=== PATIENT | male | born 1995 | race Caucasian/White ===

== ENCOUNTER 2017-08-26 21:36 | Emergency (ER) | payer OTHER ==
[2017-08-26 22:16] VITALS: BP 157/67
[2017-08-26] MEDS ORDERED: Acetaminophen/HYDROcodone 325-5 MG Tab PO ONE (22:43)
[2017-08-26] MEDS ORDERED: Albuterol/Ipratropium 3.0-0.5 MG/3 ML Neb Soln INH ONE (22:43)
--- NOTE | 2017-08-28 10:30 | ER ---
DATE SEEN: 08/26/2017 TIME SEEN: The patient was seen at 2155 hours. HISTORY OF PRESENT ILLNESS: This 320-pound young 21-year-old, who works as a cook had onset of sharp right upper quadrant pain this evening. He had not eaten anything unusual. At approximately 2100 hours, had a salami sandwich. He has those quite frequently, and does not get upset stomach nor does he have any fatty food intolerance. At its worst, the pain is 8/10. At its best, it is 3/10. 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 Two days ago, he was seen in the clinic. He was noted to have asthma and consequently he was given prednisone 20 mg b.i.d. for 3 days and 20 mg daily for 4 days. He does not use any nebulizers, but he had DuoNeb at the clinic and it made him feel a lot better. He denies fever, chills, sore throat, sinusitis, back pain, neck pain, or jaw pain. He does not have heart pain. He has some discomfort on the right subchondral joints #11. MEDICATIONS: Prednisone. REVIEW OF SYSTEMS: Negative except for noted above. PHYSICAL EXAMINATION: VITAL SIGNS: Blood pressure 157/67, heart rate 111, respirations 16, and oxygen saturation 96%. 145 kg. BMI 49.5 kg/m2. CONSTITUTIONAL: This is a very large man, in no acute distress, but is very pleasant and interactive. Has a massive abdomen and massive chest. HEENT: Pharynx without abnormality. TMs normal. NECK: No cervical adenopathy, thyromegaly, or masses in neck. Neck is supple. LUNGS: Clear. No wheezes. No rales. There are some coarse breath sounds. No sonorous rales. No squeaks and pops. Right chest ribs 11, 9, and 10 subchondral costal joints are tender to palpation, mostly ribs 11 and 10. There is no crepitus, no stepoff. CHEST: Left chest nontender. ABDOMEN: Soft, mild discomfort in right upper quadrant with palpation, but no guarding or rebound. Bowel sounds normal. No CVA percussion tenderness. No spinous process tenderness in the cervical, thoracic, or lumbar spine. EXTREMITIES: Lower legs without abnormalities. No venous linear erythema or tenderness. ASSESSMENT: Right #8, 9, 10, costal sub-chondritis. PLAN: Use Tylenol as needed 1000 mg every 6 hours, no more than 4000 per day. He has von Willebrand disease, consequently he will not get any NSAIDs. Follow up with doctor as needed, and fill up his [employer] 1 box and also he needs a nebulization machine to treat the extensive coughing and respiratory discomfort he is having with the extensive grain dust from harvest at this time of the year. /[id number] CARMELA/LEODAN
== END 2017-08-26 22:50 | disposition home or self-care (01) ==
LOC: FB.ED 21:36
DX: M94.0 Chondrocostal junction syndrome [Tietze] (principal); J45.909 Unspecified asthma, uncomplicated
CPT/HCPCS: 99283; A9270; J7620

== ENCOUNTER 2019-07-10 06:50 | Emergency (ER) | payer OTHER ==
--- NOTE | 2019-07-10 07:32 | EDM.PDOC ---
ED HPI GENERAL MEDICAL PROBLEM - General Chief Complaint: Asthma Stated Complaint: ASTMA PROBLEM Time Seen by Provider: 07/10/19 07:15 Source of Information: Reports: Patient History Limitations: Reports: No Limitations - History of Present Illness INITIAL COMMENTS - FREE TEXT/NARRATIVE: Patient is a pleasant 23-year-old male who presents today with concern for an asthma flare. He reports that when he tries to do any exertion he feels very tight in his chest and throat, and he is having coughing spells. He has only ever used albuterol, but ran out a few days ago. He notes his triggers to be exercise, viral/upper respiratory illness, and allergies such as to dust and also maybe pets. He takes an teyb-nlr-zxpgwsa allergy medicine when needed doesn 't know the name of it. He denies fever, chills or sweats. He denies any GI or complaints, and does not have any other concerns this morning. He does not have a local physician as he is here from [place], although intends to stay in the area. He does note that sometimes he wakes up at night feeling like he stopped breathing, and often has a headache in the morning. Has never been tested for sleep apnea. No other medical problems or concerns. - Related Data Allergies Allergy/AdvReac Type Severity Reaction Status Date / Time mold Allergy Cannot Verified 07/10/19 07:01 Remember Penicillins Allergy Cannot Verified 07/10/19 07:01 Remember pollen extracts Allergy Cannot Verified 07/10/19 07:01 Remember dust Allergy Cannot Uncoded 08/26/17 22:13 Remember Home Meds: Home Meds Albuterol [Ventolin HFA] 4 puff .XX Q4HR PRN #1 inhaler 07/10/19 [Rx] Fluticasone/Salmeterol [Advair 100-50] 1 puff INH BID #1 diskus 07/10/19 [Rx] Past Medical History HEENT History: Reports: Allergic Rhinitis Respiratory History: Reports: Asthma Social & Family History - Family History Family Medical History: Noncontributory - Tobacco Use Smoking Status *Q: Never Smoker - Caffeine Use Caffeine Use: Reports: Soda - Recreational Drug Use Recreational Drug Use: No ED ROS GENERAL - Review of Systems Review Of Systems: ROS reveals no pertinent complaints other than HPI. ED EXAM, GENERAL - Physical Exam Exam: See Below Free Text/Narrative:: Gen.: Alert, very pleasant in no acute distress. Head is atraumatic. Tympanic membranes are clear bilaterally with normal light reflex. Throat is without erythema, mucous members are moist and there is no tonsillar enlargement or exudates. No cervical lymphadenopathy. Lungs are clear throughout with relatively good air movement, patient is breathing easily and speaking in full sentences. Post-DuoNeb his lung exam has significantly improved air movement, no wheezing. Heart is regular rate and rhythm and I do not hear murmur, but distant sounds secondary to body habitus. Abdomen soft nontender. Course - Vital Signs Text/Narrative:: hx asthma and out of medications. Does not appear to have infection and no acute distress. Following duoneb, greatly improved air movement needs screened for sleep apnea blood pressure elevated here even after recheck, recommend f/u outpatient once asthma is improved for recheck strong recommendation made to followup with PCP Last Recorded V/S: Last Vital Signs Temp 37.2 C 07/10/19 07:00 Pulse 93 07/10/19 07:22 Resp 20 07/10/19 07:22 BP 146/81 H 07/10/19 07:22 Pulse Ox 99 07/10/19 07:22 - Orders/Labs/Meds Orders: Active Orders 24 hr Category Date Time Status RT Aerosol Therapy [RC] ASDIRECTED Care 07/10/19 07:31 Active Meds: Medications Discontinued Medications Generic Name Dose Route Start Last Admin Trade Name Freq PRN Reason Stop Dose Admin Albuterol/Ipratropium 3 ml 07/10/19 07:31 07/10/19 07:42 Duoneb 3.0-0.5 Mg/3 Ml NEB 07/10/19 07:32 3 ml ONETIME ONE Administration Departure - Departure Time of Disposition: 07:37 Disposition: Home, Self-Care 01 Condition: Good Clinical Impression: Asthma - Discharge Information *PRESCRIPTION DRUG MONITORING PROGRAM REVIEWED*: Not Applicable *COPY OF PRESCRIPTION DRUG MONITORING REPORT IN PATIENT DAVID: Not Applicable Prescriptions: Albuterol [Ventolin HFA] 4 puff .XX Q4HR PRN #1 inhaler PRN Reason: Wheezing Fluticasone/Salmeterol [Advair 100-50] 1 puff INH BID #1 diskus Instructions: Asthma, Adult, Screening for Sleep Apnea Referrals: PCP,None [Primary Care Provider] - Forms: ED Department Discharge Additional Instructions: Strongly recommend follow-up with primary care provider for evaluation of asthma control and also possible evaluation for sleep apnea, as well as high blood pressure Advair inhaler prescribed, use twice daily following Ventolin inhaler for the next 5-7 days. At that time you may try to wean off if cough is gone and breathing is feeling better Continue with gjbx-usl-bjcmszk allergy medication as needed Due to your blood pressure, do not take uywl-xea-pcezmmw medications containing pseudoephedrine or Sudafed as these may cause your blood pressure to go up - My Orders Last 24 Hours: My Active Orders 07/10/19 07:31 RT Aerosol Therapy [RC] ASDIRECTED - Assessment/Plan Last 24 Hours: My Active Orders 07/10/19 07:31 RT Aerosol Therapy [RC] ASDIRECTED
[2019-07-10] MEDS: Albuterol/Ipratropium 3.0-0.5 MG/3 ML Neb Soln NEB ONE (07:42)
[2019-07-10 09:09] VITALS: BP 120/76
== END 2019-07-10 08:56 | disposition home or self-care (01) ==
LOC: FB.ED 06:50
DX: J45.909 Unspecified asthma, uncomplicated (principal); Z79.899 Other long term (current) drug therapy; Z91.048 Other nonmedicinal substance allergy status; Z88.0 Allergy status to penicillin
CPT/HCPCS: 94640; 99284; J7620-GY

== ENCOUNTER 2020-01-29 15:41 | Emergency (ER) | payer OTHER ==
--- NOTE | 2020-01-29 16:10 | EDM.PDOC ---
ED HPI GENERAL MEDICAL PROBLEM - General Chief Complaint: Cardiovascular Problem Stated Complaint: RT LEG SWOLLEN Time Seen by Provider: 01/29/20 16:06 Source of Information: Reports: Patient History Limitations: Reports: No Limitations - History of Present Illness INITIAL COMMENTS - FREE TEXT/NARRATIVE: 24-year-old male with onset 3 weeks ago of swelling in his right lower leg/calf which has been intermittent over this period of time. He states that there was mild discomfort associated with this a couple of times that the swelling occurred but he has no pain at present. He rates his pain as a 0/10. There has been no swelling in any other area of his body. The swelling does seem to be improved with elevation and with NIKOLE hose that he has been wearing but it does seem to come back after he has a dependent again. He has had no shortness of breath or chest pain. There has been no trauma to the area. He did begin exercising with his significant other beginning some time following the onset of the swelling. There has been no trauma to the area and no incident where he feels that he did something to cause it to swell. No nausea or vomiting. There are no other associated signs or symptoms. There are no other modifying factors. Onset: Other (3 weeks ago) Duration: Intermittent (But not going away) Location: Reports: Lower Extremity, Right (Right calf, ankle and foot) Quality: Reports: Other (No pain) Improves with: Reports: Other (Elevation and NIKOLE hose) Worsens with: Reports: Other (Activity and having the leg dependent) Context: Reports: Other (As above) Associated Symptoms: Reports: No Other Symptoms Treatments COLLAR POINTER: Reports: Other (see below) - Related Data Allergies Allergy/AdvReac Type Severity Reaction Status Date / Time mold Allergy Cannot Verified 01/29/20 16:02 Remember Penicillins Allergy Cannot Verified 01/29/20 16:02 Remember pollen extracts Allergy Cannot Verified 01/29/20 16:02 Remember dust Allergy Cannot Uncoded 08/26/17 22:13 Remember Home Meds: Home Meds Albuterol Sulfate [Albuterol Sulfate Hfa] 2 puff INH Q4H PRN 01/29/20 [History] Past Medical History HEENT History: Reports: Allergic Rhinitis Respiratory History: Reports: Asthma Endocrine/Metabolic History: Reports: Obesity/BMI 30+ Hematologic History: Reports: Other (See Below) (Von Willebrand's disease) - Past Surgical History Other Surgical History Comment: No previous surgeries. Social & Family History - Family History Family Medical History: Noncontributory - Tobacco Use Smoking Status *Q: Never Smoker - Caffeine Use Caffeine Use: Reports: Soda - Alcohol Use Alcohol Use History: No - Recreational Drug Use Recreational Drug Use: No - Living Situation & Occupation Living situation: Reports: with Significant Other Occupation: Unemployed (He is starting school soon.) ED ROS GENERAL - Review of Systems Review Of Systems: See Below Constitutional: Reports: No Symptoms HEENT: Reports: No Symptoms Respiratory: Reports: No Symptoms Cardiovascular: Reports: No Symptoms GI/Abdominal: Reports: No Symptoms : Reports: No Symptoms Musculoskeletal: Reports: Other (Swelling and right lower leg) Skin: Reports: No Symptoms Neurological: Reports: No Symptoms Hematologic/Lymphatic: Reports: No Symptoms Immunologic: Reports: No Symptoms ED EXAM, GENERAL - Physical Exam Exam: See Below Exam Limited By: No Limitations General Appearance: Alert, No Apparent Distress, Obese Eye Exam: Bilateral Eye: EOMI, Normal Inspection Ears: Normal External Exam, Hearing Grossly Normal Ear Exam: Bilateral Ear: Auricle Normal Nose: Normal Inspection, Normal Mucosa, No Blood Throat/Mouth: Normal Inspection, Normal Lips, Normal Oropharynx, Normal Voice, No Airway Compromise Head: Atraumatic, Normocephalic Neck: Normal Inspection, Supple, Non-Tender, Full Range of Motion Respiratory/Chest: No Respiratory Distress, Lungs Clear, Normal Breath Sounds, No Accessory Muscle Use, Chest Non-Tender Cardiovascular: Normal Peripheral Pulses, Regular Rate, Rhythm, No Murmur Peripheral Pulses: 2+: Radial (L), Radial (R), Dorsalis Pedis (L), Dorsalis Pedis (R) GI/Abdominal: Normal Bowel Sounds, Soft, Non-Tender, Other (Protuberant) Back Exam: Normal Inspection, Full Range of Motion Extremities: Normal Range of Motion, Non-Tender, Normal Capillary Refill, Pedal Edema (Swelling in right calf, ankle and foot but mostly in the right calf) Neurological: Alert, Oriented, CN II-XII Intact, Normal Cognition, No Motor/ Sensory Deficits Skin Exam: Warm, Dry, Intact, Normal Color, No Rash Course - Vital Signs Last Recorded V/S: Last Vital Signs Temp 36.7 C 01/29/20 16:56 Pulse 100 01/29/20 16:56 Resp 20 03/11/20 16:56 BP 141/72 H 01/29/20 16:56 Pulse Ox 97 01/29/20 16:56 - Orders/Labs/Meds Orders: Active Orders 24 hr Category Date Time Status VL Duplex Lwr Ext Veins Ltd Rt [US] Stat Exams 01/29/20 16:21 Ordered - Radiology Interpretation Free Text/Narrative:: Doppler venous ultrasound of the right lower extremity showed no evidence of DVT per the certified control systems technician - Re-Assessments/Exams Free Text/Narrative Re-Assessment/Exam: 01/29/20 17:00: Repeat pulse was 100 with a blood pressure 141/90. His O2 saturation was 97% on room air. With the negative venous ultrasound, DVT has been ruled out. The certified control systems technician did not see any evidence of a Ramirez's cyst or fluid collection in the calf as well. I will have the patient continue with the NIKOLE hose and he will need to follow-up with his primary doctor if the symptoms are persisting. There is no evidence of infection at this point but I did go over the findings and symptoms of infection and gave the patient and his significant other precautions and reasons for return to the emergency department. Departure - Departure Time of Disposition: 17:05 Disposition: Home, Self-Care 01 Condition: Good Clinical Impression: Localized swelling of right lower leg Referrals: PCP,None [Primary Care Provider] - Forms: ED Department Discharge Additional Instructions: The ultrasound of your right lower extremity showed no evidence of blood clots. There was also no evidence of a fluid collection in your calf that may be associated with a bruise or with a cyst. I am unsure why you have the swelling in your right lower leg. You should continue to use the compression stocking on your right lower extremity and also continue to elevate your right lower extremity. I would avoid any activity for the next week. If you are having persisting swelling in your right lower leg, you should follow-up with your primary doctor. Back to the emergency department for increasing pain in the area , redness, increased warmth, fever, marked increase in swelling or any other concerning sign or symptom. Sepsis Event Note - Evaluation Sepsis Screening Result: No Definite Risk - Focused Exam Vital Signs: Vital Signs Temp Pulse Resp BP Pulse Ox 01/29/20 16:56 36.7 C 100 20 141/72 H 97 01/29/20 15:43 36.4 C 112 H 22 H 134/74 99 Date Exam was Performed: 01/29/20 Time Exam was Performed: 16:59 - My Orders Last 24 Hours: My Active Orders 01/29/20 16:21 VL Duplex Lwr Ext Veins Ltd Rt [US] Stat - Assessment/Plan Last 24 Hours: My Active Orders 01/29/20 16:21 VL Duplex Lwr Ext Veins Ltd Rt [US] Stat
[2020-01-29 16:57] VITALS: BP 141/72; PULSE 100
--- NOTE | 2020-01-30 11:20 | US ---
INDICATION: Right lower leg swelling, question DVT. DUPLEX ULTRASOUND OF RIGHT LOWER EXTREMITY VEINS: Utilizing 2-D real time, duplex Doppler spectral analysis and color flow imaging, examination of the right lower extremity veins, including the common femoral vein, proximal greater saphenous vein, proximal deep femoral vein, proximal femoral vein, mid femoral vein, distal femoral vein, popliteal vein, posterior tibial vein, anterior tibial vein, and peroneal vein, revealed no evidence of deep venous thrombosis or obstruction. Compression views showed no abnormal lack of compression to suggest thrombosis. No evidence of incompetence of the valves was identified. IMPRESSION: Duplex ultrasound, right lower extremity veins, shows no evidence of deep venous thrombosis or incompetence. MTDD
== END 2020-01-29 17:19 | disposition home or self-care (01) ==
LOC: FB.ED 15:41
DX: R22.41 Localized swelling, mass and lump, right lower limb (principal); J45.909 Unspecified asthma, uncomplicated; Z88.0 Allergy status to penicillin; Z91.09 Other allergy status, other than to drugs and biological substances; Z68.43 Body mass index [BMI] 50.0-59.9, adult
CPT/HCPCS: 93971-RT; 99283-25

== ENCOUNTER 2020-02-10 05:12 | Emergency (ER) | payer OTHER ==
--- NOTE | 2020-02-10 06:42 | EDM.PDOC ---
ED HPI GENERAL MEDICAL PROBLEM - General Chief Complaint: Respiratory Problem Stated Complaint: COUGH Time Seen by Provider: 02/10/20 06:36 Source of Information: Reports: Patient History Limitations: Reports: No Limitations - History of Present Illness INITIAL COMMENTS - FREE TEXT/NARRATIVE: Presents with cough and SOB x 1.5 weeks. Has a h/o asthma. Denies sick contacts , fever, or travel in the last 14 days. Duration: Week(s): (1.5) mid chest Pain Score (Numeric/FACES): 3 - Related Data Allergies Allergy/AdvReac Type Severity Reaction Status Date / Time mold Allergy Cannot Verified 01/29/20 16:02 Remember Penicillins Allergy Anaphylactic Verified 02/10/20 06:24 Shock pollen extracts Allergy Cannot Verified 01/29/20 16:02 Remember dust Allergy Cannot Uncoded 08/26/17 22:13 Remember Home Meds: Home Meds Albuterol Sulfate [Albuterol Sulfate Hfa] 2 puff INH Q4H PRN 01/29/20 [History] Doxycycline Monohydrate 100 mg PO BID #20 capsule 02/10/20 [Rx] Past Medical History HEENT History: Reports: Allergic Rhinitis Respiratory History: Reports: Asthma Endocrine/Metabolic History: Reports: Obesity/BMI 30+ Hematologic History: Reports: Other (See Below) Other Hematologic History: Von Willebrand Disease - Past Surgical History Other Surgical History Comment: No previous surgeries. Social & Family History - Family History Family Medical History: Noncontributory - Tobacco Use Smoking Status *Q: Never Smoker - Caffeine Use Caffeine Use: Reports: Soda - Living Situation & Occupation Living situation: Reports: with Significant Other Occupation: Unemployed (He is starting school soon.) ED ROS GENERAL - Review of Systems Review Of Systems: Comprehensive ROS is negative, except as noted in HPI. Cardiovascular: Reports: Chest Pain ED EXAM, GENERAL - Physical Exam Exam: See Below Exam Limited By: No Limitations General Appearance: Alert, WD/WN, No Apparent Distress Nose: Normal Inspection Throat/Mouth: No Airway Compromise Neck: Normal Inspection Respiratory/Chest: No Respiratory Distress, Lungs Clear, Normal Breath Sounds Cardiovascular: Regular Rate, Rhythm, No Murmur Back Exam: Full Range of Motion Extremities: Normal Inspection, Normal Range of Motion Neurological: Alert, Normal Cognition Psychiatric: Normal Affect, Normal Mood Skin Exam: Warm, Dry, Intact EKG INTERPRETATION EKG Date: 02/10/20 Time: 05:27 Rhythm: Other (sinus tachycardia) Rate (Beats/Min): 105 [place]: Normal P-Wave: Present QRS: Normal ST-T: Normal QT: Normal Course - Vital Signs Last Recorded V/S: Last Vital Signs Temp 36.7 C 02/10/20 05:12 Pulse 105 H 02/10/20 05:12 Resp 20 02/10/20 05:12 BP 146/90 H 02/10/20 05:12 Pulse Ox 97 02/10/20 05:12 - Orders/Labs/Meds Orders: Active Orders 24 hr Category Date Time Status Chest 2V [CR] Stat Exams 02/10/20 05:44 Taken - Radiology Interpretation Free Text/Narrative:: CXR: No evidence for active pulmonary disease. (CRL, Dr. Dee) Departure - Departure Time of Disposition: 06:42 Disposition: Home, Self-Care 01 Condition: Good Clinical Impression: URI (upper respiratory infection) Qualifiers: URI type: unspecified URI Qualified Code(s): J06.9 - Acute upper respiratory infection, unspecified - Discharge Information *PRESCRIPTION DRUG MONITORING PROGRAM REVIEWED*: No *COPY OF PRESCRIPTION DRUG MONITORING REPORT IN PATIENT DAVID: Not Applicable Prescriptions: Doxycycline Monohydrate 100 mg PO BID #20 capsule Instructions: Upper Respiratory Infection, Adult, [id number] Referrals: PCP,Not In Area [Primary Care Provider] - Additional Instructions: Fill the prescription for Doxycycline and take as directed. Continue Albuterol inhaler. Follow up with your primary physician in 3 days if symptoms don't improve. Return to the ER if symptoms worsen. Sepsis Event Note - Evaluation Sepsis Screening Result: No Definite Risk - Focused Exam Vital Signs: Vital Signs Temp Pulse Resp BP Pulse Ox 02/10/20 05:12 36.7 C 105 H 20 146/90 H 97 Date Exam was Performed: 02/10/20 Time Exam was Performed: 06:36 - My Orders Last 24 Hours: My Active Orders 02/10/20 05:44 Chest 2V [CR] Stat - Assessment/Plan Last 24 Hours: My Active Orders 02/10/20 05:44 Chest 2V [CR] Stat
[2020-02-10 07:14] VITALS: BP 107/58; PULSE 100
== END 2020-02-10 06:50 | disposition home or self-care (01) ==
LOC: FB.ED 05:12
DX: J06.9 Acute upper respiratory infection, unspecified (principal); J45.909 Unspecified asthma, uncomplicated; E66.9 Obesity, unspecified; Z79.899 Other long term (current) drug therapy; Z88.0 Allergy status to penicillin; Z91.09 Other allergy status, other than to drugs and biological substances
CPT/HCPCS: 71046; 93005; 99285-25

== ENCOUNTER 2020-02-24 21:23 | Emergency (ER) | payer OTHER ==
[2020-02-24] MEDS ORDERED: Furosemide 40 MG Tab PO ONE (22:10)
--- NOTE | 2020-02-24 22:15 | EDM.PDOC ---
ED HPI GENERAL MEDICAL PROBLEM - General Chief Complaint: General Stated Complaint: CHEST PAIN,FOOT SWELLING Time Seen by Provider: 02/24/20 21:50 Source of Information: Reports: Patient History Limitations: Reports: No Limitations - History of Present Illness INITIAL COMMENTS - FREE TEXT/NARRATIVE: pt presents with cough for one month persistent , has coughing spells , with sob minimal cough at rest no fever or chills noted now with episodes of sob has noted that legs have gotten more swollen in the last 2-3 weeks does not work , is at home on computer most of the day states 3 days ago started walking for exercise and is going on a diet has rash and lesion on the anterior legs : stasis dermatitis Onset: Gradual Onset Date: 01/23/20 Duration: Week(s): (4), Chronic, Getting Worse Location: Reports: Chest, Lower Extremity, Left (swelling), Lower Extremity, Right (swelling ) Quality: Reports: Ache Severity: Moderate Improves with: Reports: Other (elevation) Worsens with: Reports: Movement Associated Symptoms: Reports: Chest Pain, Cough, Shortness of Breath - Related Data Allergies Allergy/AdvReac Type Severity Reaction Status Date / Time mold Allergy Cannot Verified 02/24/20 21:36 Remember Penicillins Allergy Anaphylactic Verified 02/24/20 21:36 Shock pollen extracts Allergy Cannot Verified 02/24/20 21:36 Remember dust Allergy Cannot Uncoded 02/24/20 21:36 Remember Home Meds: Home Meds Albuterol Sulfate [Albuterol Sulfate Hfa] 2 puff INH Q4H PRN 01/29/20 [History] Cholecalciferol (Vitamin D3) [Vitamin D3] 2,000 unit PO DAILY 02/24/20 [History] Furosemide [Lasix] 40 mg PO DAILY #10 tablet 02/24/20 [Rx] Past Medical History HEENT History: Reports: Allergic Rhinitis Respiratory History: Reports: Asthma Musculoskeletal History: Reports: Fracture Other Musculoskeletal History: hx fx rib Neurological History: Reports: Concussion Endocrine/Metabolic History: Reports: Obesity/BMI 30+ Hematologic History: Reports: Iron Deficiency, Other (See Below) Other Hematologic History: Von Willebrand Disease - Past Surgical History HEENT Surgical History: Reports: None Musculoskeletal Surgical History: Reports: None Social & Family History - Family History Family Medical History: Noncontributory - Tobacco Use Smoking Status *Q: Never Smoker - Caffeine Use Caffeine Use: Reports: Soda - Recreational Drug Use Recreational Drug Use: No - Living Situation & Occupation Living situation: Reports: with Significant Other Occupation: Unemployed (He is starting school soon.) ED ROS GENERAL - Review of Systems Review Of Systems: Comprehensive ROS is negative, except as noted in HPI. Constitutional: Reports: Fatigue, Weight Gain HEENT: Reports: No Symptoms Respiratory: Reports: Shortness of Breath, Cough. Denies: Wheezing, Pleuritic Chest Pain, Sputum Cardiovascular: Reports: Dyspnea on Exertion, Edema, Orthopnea. Denies: Palpitations Endocrine: Reports: No Symptoms GI/Abdominal: Reports: No Symptoms Musculoskeletal: Reports: No Symptoms Skin: Reports: No Symptoms Neurological: Reports: Dizziness, Weakness. Denies: Trouble Speaking, Change in Speech, Gait Disturbance Psychiatric: Reports: No Symptoms Hematologic/Lymphatic: Reports: No Symptoms Immunologic: Reports: No Symptoms ED EXAM, GENERAL - Physical Exam Exam: See Below Exam Limited By: No Limitations General Appearance: Alert, Obese (morbidly) Eye Exam: Bilateral Eye: EOMI Ears: Normal External Exam Nose: Normal Inspection Throat/Mouth: Normal Inspection Head: Atraumatic, Normocephalic Neck: Supple, Non-Tender Respiratory/Chest: Lungs Clear Cardiovascular: Regular Rate, Rhythm, No Murmur, Other (bilateral non pitting edema of both legs) GI/Abdominal: Normal Bowel Sounds, Soft, Non-Tender Back Exam: Normal Inspection, Full Range of Motion Extremities: Normal Inspection, Normal Range of Motion Neurological: Alert, Oriented, CN II-XII Intact Skin Exam: Warm Lymphatic: No Adenopathy EKG INTERPRETATION Rhythm: NSR [place]: Normal P-Wave: Present QRS: Normal ST-T: Normal QT: Normal Course - Vital Signs Last Recorded V/S: Last Vital Signs Temp 36.7 C 02/24/20 21:25 Pulse 97 02/24/20 21:25 Resp 24 H 02/24/20 21:25 BP 129/88 02/24/20 21:25 Pulse Ox 97 02/24/20 21:25 - Orders/Labs/Meds Orders: Active Orders 24 hr Category Date Time Status EKG Documentation Completion [RC] ASDIRECTED Care 02/24/20 22:09 Active Chest 2V [CR] Stat Exams 02/24/20 22:09 Taken EKG 12 Lead [EK] Routine Ther 02/24/20 22:09 Ordered Labs: Laboratory Tests 02/24/20 02/24/20 Range/Units 23:15 23:25 Sodium 141 (135-145) mmol/L Potassium 4.1 (3.5-5.3) mmol/L Chloride 103 (100-110) mmol/L Carbon Dioxide 30 (21-32) mmol/L BUN 12 (7-18) mg/dL Creatinine 1.1 (0.70-1.30) mg/dL Est Cr Clr Drug Dosing 107.84 mL/min Estimated GFR (MDRD) > 60 (>60) BUN/Creatinine Ratio 10.9 (9-20) Glucose 103 (80-116) mg/dL Calcium 8.9 (8.6-10.2) mg/dL Urine Color Yellow (YELLOW) Urine Appearance Clear (CLEAR) Urine pH 6.0 (5.0-6.5) Ur Specific [place] 1.020 (1.010-1.025) Urine Protein Negative (NEGATIVE) mg/dL Urine Glucose (UA) Normal (NORMAL) mg/dL Urine Ketones Negative (NEGATIVE) mg/dL Urine Occult Blood Negative (NEGATIVE) Urine Nitrite Negative (NEGATIVE) Urine Bilirubin Negative (NEGATIVE) Urine Urobilinogen Normal (NEGATIVE) mg/dL Ur Leukocyte Esterase Negative (NEGATIVE) Urine RBC 0-5 (0-5) Urine WBC 0-5 (0-5) Ur Squamous Epith Cells Rare (NS,R,O) Urine Bacteria Rare H (NS) Meds: Medications Discontinued Medications Generic Name Dose Route Start Last Admin Trade Name Freq PRN Reason Stop Dose Admin Furosemide 40 mg 02/24/20 22:10 02/24/20 22:45 Lasix PO 02/24/20 22:11 40 mg ONETIME ONE Administration - Re-Assessments/Exams Free Text/Narrative Re-Assessment/Exam: 02/24/20 22:19 Ekg done Cxray done Given oral Lasix Departure - Departure Time of Disposition: 23:50 Disposition: Home, Self-Care 01 Condition: Good Clinical Impression: Cough due to bronchospasm, Cough present for greater than 3 weeks, Localized swelling of both lower legs - Discharge Information *PRESCRIPTION DRUG MONITORING PROGRAM REVIEWED*: Not Applicable *COPY OF PRESCRIPTION DRUG MONITORING REPORT IN PATIENT DAVID: Not Applicable Prescriptions: Furosemide [Lasix] 40 mg PO DAILY #10 tablet Referrals: PCP,None [Primary Care Provider] - Forms: ED Department Discharge Additional Instructions: 1) Increase fluid intake 2) keep legs elevated as often as possible 3) Continue with weight loss efforts: helps with circulation in the legs 4) make appt to see your PCP for follow up Sepsis Event Note - Evaluation Sepsis Screening Result: No Definite Risk - Focused Exam Vital Signs: Vital Signs Temp Pulse Resp BP Pulse Ox 02/24/20 21:25 36.7 C 97 24 H 129/88 97 Date Exam was Performed: 02/24/20 Time Exam was Performed: 23:49 - My Orders Last 24 Hours: My Active Orders 02/24/20 22:09 EKG Documentation Completion [RC] ASDIRECTED Chest 2V [CR] Stat EKG 12 Lead [EK] Routine - Assessment/Plan Last 24 Hours: My Active Orders 02/24/20 22:09 EKG Documentation Completion [RC] ASDIRECTED Chest 2V [CR] Stat EKG 12 Lead [EK] Routine
[2020-02-25 01:14] VITALS: BP 115/55; PULSE 91
--- NOTE | 2020-02-25 09:56 | CR ---
INDICATION: Cough. Shortness of breath with exertion. CHEST, TWO VIEWS: Two PA views and a lateral view of the chest were obtained and compared with 02/10/20. Evidence of exogenous obesity is again noted. The heart, mediastinum, and bony thorax are unremarkable. Overlying EKG leads are noted. A definite active infiltrate or effusion was not identified. However, there is mild bronchial wall cuffing at the lung bases which may be on the basis of active peribronchial disease and should be correlated clinically. IMPRESSION: 1. No definite acute process. However, there is bronchial wall cuffing at the lung bases which could be on the basis of fibrosis and/or active peribronchial disease and should be correlated clinically. 2. Exogenous obesity. MTDD
== END 2020-02-25 00:16 | disposition home or self-care (01) ==
LOC: FB.ED 21:23
DX: J98.01 Acute bronchospasm (principal); R22.43 Localized swelling, mass and lump, lower limb, bilateral; D68.0 Von Willebrand disease; E66.9 Obesity, unspecified; Z88.0 Allergy status to penicillin; Z91.09 Other allergy status, other than to drugs and biological substances; Z68.43 Body mass index [BMI] 50.0-59.9, adult
CPT/HCPCS: 36415; 71046; 80048; 81001; 93005; 99285-25; A9270-GY